=== PATIENT | male | born 1990 | race Caucasian/White ===

== ENCOUNTER 2021-01-13 17:42 | Emergency (ER) | payer OTHER ==
[~2021-01-13 17:42] MED LIST: BACTRIM DS TAB1 EACH PO; IBUPROFEN800 MG PO; KEFLEX CAP 500500 MG PO; PROTONIX40 MG PO; VIBRAMYCIN100 MG PO; ZOFRAN4 MG PO
[2021-01-13] MEDS ORDERED: BACTRIM DS TAB1 EACH PO (20:28)
== END 2021-01-13 20:40 | disposition home or self-care (01) ==
LOC: ER1 17:42
DX: L02.416 Cutaneous abscess of left lower limb (principal); F17.290 Nicotine dependence, other tobacco product, uncomplicated
CPT/HCPCS: 87070; 87077; 87186; 87205; 99283

== ENCOUNTER 2021-11-17 22:54 | Emergency (ER) | payer OTHER | END 2021-11-18 02:49 | disposition left against medical advice (07) | LOC: ER1 22:54 | DX: Z53.21 Procedure and treatment not carried out due to patient leaving prior to being seen by health care provider (principal) ==